=== PATIENT | female | born 1985 | race Caucasian/White ===

== ENCOUNTER 2023-05-25 00:43 | Emergency (ER) | payer OTHER ==
[~2023-05-25] VITALS: Ht 165.1 cm; Wt 61.2 kg
[2023-05-25 00:48] VITALS: PULSE 82; RESP 16; TEMP 98.4; O2SAT 99
[2023-05-25 03:23] VITALS: BP_SYST 119; PULSE 70; RESP 15; TEMP 97.7; O2SAT 99
== END 2023-05-25 03:23 | disposition home or self-care (01) ==
LOC: SED 00:43
DX: S80.01XA Contusion of right knee, initial encounter (principal); Z79.899 Other long term (current) drug therapy; W19.XXXA Unspecified fall, initial encounter; Y93.89 Activity, other specified; Y92.89 Other specified places as the place of occurrence of the external cause; Y99.8 Other external cause status
CPT/HCPCS: 73560-TC; 99283